=== PATIENT | female | born 1990 | race Caucasian/White ===

== ENCOUNTER 2017-11-23 04:58 | Inpatient (IN) | payer BC ==
[2017-11-23] MEDS ORDERED: Sodium Chloride 0.9% 10 ML Syringe FLUSH PRN ×2 (05:54→09:48)
[2017-11-23] MEDS ORDERED: Water For Irrigation,Sterile 1,000 ML Container IRR PRN (05:54)
[2017-11-23] MEDS ORDERED: Methylergonovine 0.2 MG/1 ML Amp IM PRN (05:54)
[2017-11-23] MEDS ORDERED: Butorphanol 1 MG/ML SDV IVPUSH PRN (05:54)
[2017-11-23] MEDS ORDERED: Nalbuphine 10 MG/1 ML Vial IVPUSH PRN ×2 (05:54→20:36)
[2017-11-23] MEDS ORDERED: Sodium Chloride 0.9% 2.5 ML Syringe FLUSH PRN ×2 (05:54→09:48)
[2017-11-23] MEDS ORDERED: Carboprost Tromethamine 250 MCG/1 ML Amp IM PRN (05:54)
[2017-11-23] MEDS ORDERED: Misoprostol 200 MCG Tab PO PRN (05:54)
[2017-11-23] MEDS ORDERED: Lidocaine 1% 50 ML MDV INJECT PRN (05:54)
[2017-11-23] MEDS ORDERED: Terbutaline 1 MG/ML SDV SUBCUT PRN (05:56)
[2017-11-23] MEDS ORDERED: Lactated Ringers 1,000 ML IV SCH ×3 (06:00→20:30)
[2017-11-23] MEDS ORDERED: Oxytocin/0.9 % Sodium Chloride 30 UNIT/500 ML BAG IV SCH ×2 (06:00→10:00)
[2017-11-23] MEDS ORDERED: ceFAZolin 2 GM in Premix Bag 1 BAG IV ONE (09:48)
[2017-11-23] MEDS ORDERED: Citric Acid/Sodium Citrate Solution 30 ML Cup PO SCH (10:00)
--- NOTE | 2017-11-23 10:14 | PCM.PREANE ---
Preanesthetic Assessment - Anesthesia/Transfusion/Family Hx Anesthesia History: Prior Anesthesia Without Reaction Transfusion History: Prior Transfusion Without Reaction - Review of Systems General: No Symptoms Pulmonary: No Symptoms Cardiovascular: No Symptoms Gastrointestinal: No Symptoms Neurological: No Symptoms Other: Reports: None - Physical Assessment Height: 5 ft 3 in Weight: 93.894 kg ASA Class: 2 Mental Status: Alert & Oriented x3 Airway Class: Mallampati = 2 Dentition: Reports: Normal Dentition Thyro-Mental Finger Breadths: 3 Mouth Opening Finger Breadths: 3 ROM/Head Extension: Full Lungs: Clear to Auscultation, Normal Respiratory Effort Cardiovascular: Regular Rate, Regular Rhythm - Lab Values: Laboratory Last Values WBC 10.17 K/uL (4.0-11.0) 11/23/17 06:40 RBC 3.44 M/uL (4.30-5.90) L 11/23/17 06:40 Hgb 9.6 g/dL (12.0-16.0) L 11/23/17 06:40 Hct 30.1 % (36.0-46.0) L 11/23/17 06:40 MCV 87.5 fL (80.0-98.0) 11/23/17 06:40 MCH 27.9 pg (27.0-32.0) 11/23/17 06:40 MCHC 31.9 g/dL (31.0-37.0) 11/23/17 06:40 RDW Std Deviation 47.2 fl (28.0-62.0) 11/23/17 06:40 RDW Coeff of Joe 15 % (11.0-15.0) 11/23/17 06:40 Plt Count 204 K/uL (150-400) 11/23/17 06:40 MPV 9.90 fL (7.40-12.00) 11/23/17 06:40 Nucleated RBC % 0.0 /100WBC 11/23/17 06:40 Nucleated RBCs # 0 K/uL 11/23/17 06:40 Blood Type O POSITIVE 11/23/17 06:40 Antibody Screen NEGATIVE 11/23/17 06:40 Crossmatch See Detail 11/23/17 06:40 - Allergies Allergies/Adverse Reactions: Allergies Allergy/AdvReac Type Severity Reaction Status Date / Time amoxicillin [From Augmentin] Allergy Intermediate Hives Verified 01/17/17 01:35 clavulanic acid Allergy Intermediate Hives Verified 12/17/16 01:35 [From Augmentin] - Anesthesia Plan Free Text/Narrative:: Discussed the possibility of blood transfusion, pt agrees to receive transfusion should be deemed it necessary. 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: Musculoskeletal History: Reports: Fracture, Other (See Below) Other Musculoskeletal History: ankle Neurological History: Reports: Seizure, Other (See Below) Other Neuro History: seizure as a baby following vaccination Psychiatric History: Reports: Anxiety, Depression - Infectious Disease History Infectious Disease History: Reports: Chicken Pox - Past Surgical History Musculoskeletal Surgical History: Reports: ORIF Other Musculoskeletal Surgeries/Procedures:: left ankle - SUBSTANCE USE Smoking Status *Q: Never Smoker Second Hand Smoke Exposure: No Recreational Drug Use History: No - HOME MEDS Home Medications: Home Meds . [No Known Home Meds] 12/17/16 [History] - CURRENT (IN HOUSE) MEDS Current Meds: Current Medications Butorphanol Tartrate (Stadol) 1 mg IVPUSH Q1H PRN PRN Reason: Pain Carboprost Tromethamine (Hemabate Ds) 250 mcg IM ASDIRECTED PRN PRN Reason: Post Hemorrhage Citric Acid/Sodium Citrate (Bicitra Solution) 30 ml PO .ONCE SADE Lactated Ringer's (Ringers, Lactated) 1,000 mls @ 150 mls/hr IV ASDIRECTED SADE Last Admin: 11/23/17 07:15 Dose: 150 mls/hr Oxytocin/Sodium Chloride (Oxytocin 30 Unit/500 Ml-Ns) 30 unit in 500 mls @ 2 mls/hr IV TITRATE SADE; 2 MUNITS/MIN PRN Reason: Protocol Last Titration: 11/23/17 09:11 Dose: 0 munits/min, 0 mls/hr Cefazolin Sodium/Dextrose 2 gm (/ Premix) 50 mls @ 100 mls/hr IV ONETIME ONE Stop: 11/23/17 10:17 Lactated Ringer's (Ringers, Lactated) 1,000 mls @ 500 mls/hr IV .BOLUS SADE Oxytocin/Sodium Chloride (Oxytocin 30 Unit/500 Ml-Ns) 30 unit in 500 mls @ 250 mls/hr IV TITRATE SADE Lidocaine HCl (Xylocaine 1%) 50 ml INJECT .ONCE PRN PRN Reason: Laceration repair Methylergonovine Maleate (Methergine) 0.2 mg IM ASDIRECTED PRN PRN Reason: Post Hemorrhage Misoprostol (Cytotec) 200 mcg PO .ONCE PRN PRN Reason: Post Hemorrhage Nalbuphine HCl (Nubain) 10 mg IVPUSH Q1H PRN PRN Reason: Pain (severe 7-10) Sodium Chloride (Saline Flush) 10 ml FLUSH ASDIRECTED PRN PRN Reason: Keep Vein Open Sodium Chloride (Saline Flush) 2.5 ml FLUSH ASDIRECTED PRN PRN Reason: Keep Vein Open Sodium Chloride (Saline Flush) 10 ml FLUSH ASDIRECTED PRN PRN Reason: Keep Vein Open Sodium Chloride (Saline Flush) 2.5 ml FLUSH ASDIRECTED PRN PRN Reason: Keep Vein Open Sterile Water (Sterile Water For Irrigation) 1,000 ml IRR ASDIRECTED PRN PRN Reason: delivery Terbutaline Sulfate (Brethine) 0.25 mg SUBCUT ASDIRECTED PRN PRN Reason: Tacysystole
[2017-11-23] MEDS ORDERED: Ondansetron 4 MG/2 ML SDV ONE (10:21)
[2017-11-23] MEDS ORDERED: Oxytocin 10 Units/1 ML SDV ONE (10:21)
[2017-11-23] MEDS ORDERED: ceFAZolin 1 GM Vial ONE (10:21)
[2017-11-23] MEDS ORDERED: Sodium Chloride 0.9% 20 ML ONE (10:21)
[2017-11-23] MEDS ORDERED: ePHEDrine 50 MG/ML SDV ONE (10:21)
[2017-11-23] MEDS ORDERED: Morphine PF 10 MG/10 ML SDV ONE (10:24)
[2017-11-23] MEDS ORDERED: Octyl 2-Cyanoacrylate 1 Tube ONE (11:05)
[2017-11-23] MEDS ORDERED: fentaNYL 100 MCG/2 ML SDV ONE (11:06)
[2017-11-23] MEDS ORDERED: Ketorolac 30 MG/ML SDV ONE (12:02)
[2017-11-23] MEDS ORDERED: Ondansetron 4 MG/2 ML SDV IV PRN (20:28)
[2017-11-23] MEDS ORDERED: Acetaminophen/oxyCODONE 325-5 MG Tab PO PRN (20:28)
[2017-11-23] MEDS ORDERED: Bisacodyl 10 MG Supp RECTAL PRN (20:28)
[2017-11-23] MEDS ORDERED: Lanolin 100% Cream 7 GM Tube TOP PRN (20:28)
[2017-11-23] MEDS ORDERED: diphenhydrAMINE 50 MG/ML SDV IVPUSH PRN (20:28)
[2017-11-23] MEDS ORDERED: Naloxone 0.4 MG/ML Syringe IVPUSH PRN (20:38)
[2017-11-23] MEDS: Ketorolac 30 MG/ML SDV IVPUSH SCH (20:40)
[2017-11-23] MEDS: Docusate Sodium 100 MG Cap PO SCH (21:29)
--- NOTE | 2017-11-24 00:19 | OR ---
SURGEON: Nancy Rene M.D. DATE OF PROCEDURE: 11/23/2017 PREOPERATIVE DIAGNOSIS: Thirty-nine weeks intrauterine , breech presentation, polyhydramnios. POSTOPERATIVE DIAGNOSIS: Thirty-nine weeks intrauterine , breech presentation, polyhydramnios. PROCEDURE: Primary low transverse section. PRIMARY SURGEON: Nancy Rene M.D. ANESTHESIA: Spinal. ESTIMATED BLOOD LOSS: 500 mL. FLUIDS: 1300 mL crystalloid. FINDINGS: Live born female, score 9 and 9, weighing 3620 grams. COMPLICATIONS: None known. DISPOSITION: Stable to recovery. BRIEF HISTORY: This is a 27-year-old female, G4, P3-0-0-3. She was diagnosed with polyhydramnios. She presents for induction of labor. Upon presentation, she was found to be breech with the head in the maternal left upper quadrant. Due to the polyhydramnios and documentation of recent cephalic presentation, I did recommend proceeding with external cephalic version with risks discussed including injury, placental abruption, spontaneous rupture of membranes, onset of labor, and maternal discomfort versus proceeding with a primary C- section with risks of bleeding; infection; injury to bowel, bladder, blood vessels; injury to other organs; risk of thrombolic event; and risk of anesthesia. Understanding all these risks, she does desire to proceed with a primary low transverse delivery. DESCRIPTION OF PROCEDURE: With the patient in left tilt position, under adequate spinal analgesia, the abdomen was prepped with chlorhexidine and draped in usual fashion for abdominal surgery. SCDs were in place. She had received 2 g of Ancef IV and documentation of adequate analgesia was performed after time-out was held. A transverse curvilinear incision was made cephalad from the pubic symphysis by 2 cm and carried through the subcutaneous tissue. The fascia was just scored transversely in the midline. The fascial incision was extended laterally using curved Chand scissors. The fascia was elevated from the underlying rectus muscle using sharp and blunt dissection. The rectus muscles were in the midline using blunt dissection. A finger was placed into the peritoneal cavity. There were no adhesions. This was extended by blunt dissection. The Edgar C- section retractor was placed into the abdominal cavity. The visceroperitoneum over the lower uterine segment was incised to develop an adequate bladder flap. A transverse curvilinear incision was made over the lower uterine segment using a scalpel. A finger was used to enter the amniotic cavity. Copious clear fluid was noted. breech was palpated; however, with gentle rotation, I was able to internally vert the fetus to cephalic presentation for delivery and delivered with fundal pressure the infant's head followed by shoulders and body without any difficulty. The infant was bulb suctioned by nose and mouth. Cord was clamped x2 and cut, and the was handed to Dr. Jang who was present at the time of delivery. The is a liveborn female, score 9 and 9, weighing 3620 grams. Cord blood was collected for cord ABGs as well as routine cord blood sampling. Placenta was removed by manual extraction and cleaned with a dry laparotomy tape. The cervix was opened with a ring forceps. The uterine incision was closed with a running lock suture of 0 Polysorb, followed by an imbricating layer of 0 Polysorb, followed by several [id number] sutures of 0 Polysorb for complete hemostasis. The pericolic gutters and posterior cul-de- sac were cleaned with a wet laparotomy tape. The uterine incision was carefully inspected and was hemostatic. The Edgar retractor was removed. There was one final inspection performed and hemostasis was confirmed. The rectus muscle and peritoneum were loosely approximated in the midline using a running mattress suture of 0 Polysorb. The posterior aspect of the fascia was inspected and was hemostatic. The fascial incision was closed with a running lock suture of 0 Polysorb. Subcutaneous tissue was irrigated. Any areas of bleeding that were noted were cauterized. The skin was closed with a running subcuticular suture of 3-0 Polysorb followed by skin glue. Final sponge, needle, and instrument counts were reported as correct. There were no known complications, and the went to nursery in good condition, mother remains in recovery in good condition. ANDREINA / ANIRUDH /[id number]
[2017-11-24] MEDS: Ketorolac 30 MG/ML SDV IVPUSH SCH ×4 (02:56→20:42)
--- NOTE | 2017-11-24 06:04 | PCM.POSTAN ---
POST ANESTHESIA ASSESSMENT - MENTAL STATUS Mental Status: Alert, Oriented - RESPIRATORY Respiratory Status: Respiratory Rate WNL, Airway Patent, O2 Saturation Stable - CARDIOVASCULAR CV Status: Pulse Rate WNL, Blood Pressure Stable - GASTROINTESTINAL GI Status: No Symptoms - POST OP HYDRATION Hydration Status: Adequate & Stable
--- NOTE | 2017-11-24 06:05 | PCM48HPAN ---
Post Anesthesia Note - EVALUATION WITHIN 48HRS OF ANESTHETIC Vital Signs in Normal Range: Yes Patient Participated in Evaluation: Yes Respiratory Function Stable: Yes Airway Patent: Yes Cardiovascular Function Stable: Yes Hydration Status Stable: Yes Pain Control Satisfactory: Yes Nausea and Vomiting Control Satisfactory: Yes Mental Status Recovered: Yes
[2017-11-24] MEDS: Docusate Sodium 100 MG Cap PO SCH ×2 (08:22→21:34)
--- NOTE | 2017-11-24 09:29 | PCM.PNPP ---
- General Info Functional Status: Reports: Pain Controlled, Tolerating Diet, Ambulating, Urinating - Review of Systems General: Reports: No Symptoms HEENT: Reports: No Symptoms Pulmonary: Reports: No Symptoms Cardiovascular: Reports: No Symptoms Gastrointestinal: Reports: No Symptoms Genitourinary: Reports: No Symptoms Musculoskeletal: Reports: No Symptoms Skin: Reports: No Symptoms Neurological: Reports: No Symptoms Psychiatric: Reports: No Symptoms - Patient Data Vital Signs - Most Recent: Last Vital Signs Temp 36.8 C 11/24/17 02:54 Pulse 76 11/24/17 02:54 Resp 16 11/24/17 06:03 BP 107/47 L 11/24/17 02:54 Pulse Ox 100 11/24/17 06:03 Weight - Most Recent: 93.894 kg Lab Results - Last 24 Hours: Laboratory Results - last 24 hr 11/23/17 11/24/17 Range/Units 06:40 06:07 Hgb 9.6 L (12.0-16.0) g/dL Hct 30.2 L (36.0-46.0) % Blood Type O POSITIVE Antibody Screen NEGATIVE Crossmatch See Detail Med Orders - Current: Current Medications Bisacodyl (Dulcolax) 10 mg RECTAL .ONCE PRN PRN Reason: Constipation Butorphanol Tartrate (Stadol) 1 mg IVPUSH Q1H PRN PRN Reason: Pain Carboprost Tromethamine (Hemabate Ds) 250 mcg IM ASDIRECTED PRN PRN Reason: Post Hemorrhage Citric Acid/Sodium Citrate (Bicitra Solution) 30 ml PO .ONCE SADE Diphenhydramine HCl (Benadryl) 25 mg IVPUSH Q6H PRN PRN Reason: Itching or Nausea Docusate Sodium (Colace) 100 mg PO BID SADE Last Admin: 11/24/17 08:22 Dose: 100 mg Emollient Ointment (Lansinoh Hpa) 0 gm TOP ASDIRECTED PRN PRN Reason: Sore Nipples Lactated Ringer's (Ringers, Lactated) 1,000 mls @ 150 mls/hr IV ASDIRECTED SADE Last Admin: 11/23/17 07:15 Dose: 150 mls/hr Oxytocin/Sodium Chloride (Oxytocin 30 Unit/500 Ml-Ns) 30 unit in 500 mls @ 2 mls/hr IV TITRATE SADE; 2 MUNITS/MIN PRN Reason: Protocol Last Titration: 11/23/17 09:11 Dose: 0 munits/min, 0 mls/hr Lactated Ringer's (Ringers, Lactated) 1,000 mls @ 500 mls/hr IV .BOLUS SADE Oxytocin/Sodium Chloride (Oxytocin 30 Unit/500 Ml-Ns) 30 unit in 500 mls @ 250 mls/hr IV TITRATE SADE Lactated Ringer's (Ringers, Lactated) 1,000 mls @ 125 mls/hr IV ASDIRECTED SADE Last Admin: 11/23/17 21:25 Dose: 125 mls/hr Ibuprofen (Motrin) 800 mg PO Q8H PRN PRN Reason: mild pain or fever Ketorolac Tromethamine (Toradol) 30 mg IVPUSH Q6H SADE Stop: 11/24/17 20:31 Last Admin: 11/24/17 08:22 Dose: 30 mg Lidocaine HCl (Xylocaine 1%) 50 ml INJECT .ONCE PRN PRN Reason: Laceration repair Methylergonovine Maleate (Methergine) 0.2 mg IM ASDIRECTED PRN PRN Reason: Post Hemorrhage Misoprostol (Cytotec) 200 mcg PO .ONCE PRN PRN Reason: Post Hemorrhage Nalbuphine HCl (Nubain) 10 mg IVPUSH Q1H PRN PRN Reason: Pain (severe 7-10) Nalbuphine HCl (Nubain) 5 mg IVPUSH Q3H PRN PRN Reason: Itching Naloxone HCl (Narcan) 0.1 mg IVPUSH SEECOMMENT PRN PRN Reason: Other Ondansetron HCl (Zofran) 4 mg IV Q4H PRN PRN Reason: Nausea/Vomiting Oxycodone/Acetaminophen (Percocet 325-5 Mg) 1 tab PO Q4H PRN PRN Reason: Pain (moderate 4-6) Oxycodone/Acetaminophen (Percocet 325-5 Mg) 2 tab PO Q4H PRN PRN Reason: Pain (moderate 4-6) Sodium Chloride (Saline Flush) 10 ml FLUSH ASDIRECTED PRN PRN Reason: Keep Vein Open Sodium Chloride (Saline Flush) 2.5 ml FLUSH ASDIRECTED PRN PRN Reason: Keep Vein Open Sodium Chloride (Saline Flush) 10 ml FLUSH ASDIRECTED PRN PRN Reason: Keep Vein Open Sodium Chloride (Saline Flush) 2.5 ml FLUSH ASDIRECTED PRN PRN Reason: Keep Vein Open Sterile Water (Sterile Water For Irrigation) 1,000 ml IRR ASDIRECTED PRN PRN Reason: delivery Terbutaline Sulfate (Brethine) 0.25 mg SUBCUT ASDIRECTED PRN PRN Reason: Tacysystole Discontinued Medications Cefazolin Sodium (Ancef) Confirm Administered Dose 2 gm .ROUTE .STK-MED ONE Stop: 11/23/17 10:22 Ephedrine Sulfate (Ephedrine Sulfate) Confirm Administered Dose 50 mg .ROUTE .STK-MED ONE Stop: 11/23/17 10:22 Fentanyl (Sublimaze) Confirm Administered Dose 100 mcg .ROUTE .STK-MED ONE Stop: 11/23/17 11:07 Glycopyrrolate () Confirm Administered Dose 1 mg .ROUTE .STK-MED ONE Stop: 11/23/17 10:57 Cefazolin Sodium/Dextrose 2 gm (/ Premix) 50 mls @ 100 mls/hr IV ONETIME ONE Stop: 11/23/17 10:17 Last Admin: 11/23/17 18:42 Dose: Not Given Sodium Chloride (Normal Saline) Confirm Administered Dose 20 mls @ as directed .ROUTE .STK-MED ONE Stop: 11/23/17 10:22 Ketorolac Tromethamine (Toradol) Confirm Administered Dose 30 mg .ROUTE .STK- MED ONE Stop: 11/23/17 12:03 Last Admin: 11/23/17 21:07 Dose: Not Given Morphine Sulfate (Duramorph Pf) Confirm Administered Dose 10 mg .ROUTE .STK-MED ONE Stop: 11/23/17 10:25 Octyl Cyanoacrylate (Dermabond Advance) Confirm Administered Dose 1 applic .ROUTE .STK-MED ONE Stop: 11/23/17 11:06 Ondansetron HCl (Zofran) Confirm Administered Dose 4 mg .ROUTE .STK-MED ONE Stop: 11/23/17 10:22 Oxytocin (Pitocin) Confirm Administered Dose 20 unit .ROUTE .STK-MED ONE Stop: 11/23/17 10:22 - Infant Interaction Infant Disposition, : [place] in Room with Family Infant Interaction: Holding Infant Infant Feeding: Breastfed Infant; Nursed Well Support Person: - Recovery Exam Fundal Level: 3 Fingerbreadths Below Umbilicus Fundal Placement: Midline Lochia Amount: Small - Exam General: Alert, Oriented HEENT: Pupils Equal Neck: Supple Lungs: Clear to Auscultation GI/Abdominal Exam: Soft, Non-Tender, No Organomegaly, No Distention Extremities: Normal Inspection, Non-Tender, No Pedal Edema Skin: Warm, Dry, Intact Wound/Incisions: Healing Well Neurological: No New Focal Deficit Psy/Mental Status: Alert, Normal Affect, Normal Mood - Problem List & Annotations (1) Prev [id number] SNOMED Code(s): 013763867 Code(s): O34.219 - MATERNAL CARE FOR UNSP TYPE SCAR FROM PREVIOUS DEL Status: Acute Current Visit: Yes - Problem List Review Problem List Initiated/Reviewed/Updated: Yes - My Orders Last 24 Hours: My Active Orders 11/23/17 09:48 Notify Provider Vital Signs [RC] PRN Sodium Chloride 0.9% [Saline Flush] 10 ml FLUSH ASDIRECTED PRN Sodium Chloride 0.9% [Saline Flush] 2.5 ml FLUSH ASDIRECTED PRN Peripheral IV Insertion Adult [OM.PC] Routine Schedule Procedure [COMM] Per Unit Routine 11/23/17 10:00 Citric Acid/Sodium Citrate [Bicitra Solution] 30 ml PO .ONCE Lactated Ringers [Ringers, Lactated] 1,000 ml IV .BOLUS Oxytocin/0.9 % Sodium Chloride [Oxytocin 30 Unit/500 ML-NS] 30 unit in 500 ml IV TITRATE 11/23/17 10:57 Patient Status [ADT] Routine Notify Provider Intake and Out [RC] ASDIRECTED Notify Provider Vital Signs [RC] ASDIRECTED 11/23/17 20:28 Ambulate [RC] PER UNIT ROUTINE Antiembolic Devices [RC] PER UNIT ROUTINE Communication Order [RC] PER UNIT ROUTINE Communication Order [RC] PER UNIT ROUTINE Communication Order [RC] Per Unit Routine May Shower [RC] ASDIRECTED RT Incentive Spirometry [RC] Q2HWA Vital Signs [RC] PER UNIT ROUTINE Acetaminophen/oxyCODONE [Percocet 325-5 MG] 1 tab PO Q4H PRN Acetaminophen/oxyCODONE [Percocet 325-5 MG] 2 tab PO Q4H PRN Bisacodyl [Dulcolax] 10 mg RECTAL .ONCE PRN Ibuprofen [Motrin] 800 mg PO Q8H PRN Lanolin [Lansinoh HPA] See Dose Instructions TOP ASDIRECTED PRN Ondansetron [Zofran] 4 mg IV Q4H PRN diphenhydrAMINE [Benadryl] 25 mg IVPUSH Q6H PRN Assess Lochia [WOMSER] Per Unit Routine Assess Uterine Involution [WOMSER] Per Unit Routine Breast Pump [WOMSER] Per Unit Routine Peripheral IV Discontinue [OM.PC] Routine Sequential Compression Device [OM.PC] Per Unit Routine 11/23/17 20:30 Ketorolac [Toradol] 30 mg IVPUSH Q6H Lactated Ringers [Ringers, Lactated] 1,000 ml IV ASDIRECTED 11/23/17 21:00 Docusate Sodium [Colace] 100 mg PO BID 11/23/17 Dinner Regular Diet [DIET] - Assessment Assessment:: POD#1 after primary for breech presentation, stable, minimal lochia. Tolerating regular diet, ambulating and urinating without difficulty. - Plan Plan:: Continue care, anticipate home in am.
[2017-11-24] MEDS: Acetaminophen/oxyCODONE 325-5 MG Tab PO PRN (18:20)
[2017-11-24] MEDS: Ibuprofen 800 MG Tab PO PRN (21:34)
[2017-11-25] MEDS: Acetaminophen/oxyCODONE 325-5 MG Tab PO PRN ×2 (03:39→08:37)
[2017-11-25] MEDS: Docusate Sodium 100 MG Cap PO SCH (08:38)
[2017-11-25 09:45] VITALS: BP 112/64
--- NOTE | 2017-11-25 10:10 | PCM.PNPP ---
- General Info Date of Service: 11/25/17 Admission Dx/Problem (Free Text): 27 yo s/p Primary for breech presentation POD 2 Subjective Update: Patient seen at bedside , she denies any complains , ambulating voiding and tolerating regular diet , minimal lochia Functional Status: Reports: Pain Controlled, Tolerating Diet, Ambulating, Urinating - Review of Systems General: Reports: No Symptoms HEENT: Reports: No Symptoms Pulmonary: Reports: No Symptoms Cardiovascular: Reports: No Symptoms Gastrointestinal: Reports: No Symptoms Genitourinary: Reports: No Symptoms Musculoskeletal: Reports: No Symptoms Skin: Reports: No Symptoms Neurological: Reports: No Symptoms Psychiatric: Reports: No Symptoms - General Info Date of Service: 11/25/17 - Patient Data Vital Signs - Most Recent: Last Vital Signs Temp 36.2 C 11/25/17 09:41 Pulse 70 11/25/17 09:41 Resp 18 11/25/17 09:41 BP 112/64 11/25/17 09:41 Pulse Ox 99 11/25/17 09:41 Weight - Most Recent: 93.894 kg Med Orders - Current: Current Medications Bisacodyl (Dulcolax) 10 mg RECTAL .ONCE PRN PRN Reason: Constipation Butorphanol Tartrate (Stadol) 1 mg IVPUSH Q1H PRN PRN Reason: Pain Carboprost Tromethamine (Hemabate Ds) 250 mcg IM ASDIRECTED PRN PRN Reason: Post Hemorrhage Citric Acid/Sodium Citrate (Bicitra Solution) 30 ml PO .ONCE SADE Diphenhydramine HCl (Benadryl) 25 mg IVPUSH Q6H PRN PRN Reason: Itching or Nausea Docusate Sodium (Colace) 100 mg PO BID SADE Last Admin: 11/25/17 08:38 Dose: 100 mg Emollient Ointment (Lansinoh Hpa) 0 gm TOP ASDIRECTED PRN PRN Reason: Sore Nipples Lactated Ringer's (Ringers, Lactated) 1,000 mls @ 150 mls/hr IV ASDIRECTED SADE Last Admin: 11/23/17 07:15 Dose: 150 mls/hr Oxytocin/Sodium Chloride (Oxytocin 30 Unit/500 Ml-Ns) 30 unit in 500 mls @ 2 mls/hr IV TITRATE SADE; 2 MUNITS/MIN PRN Reason: Protocol Last Titration: 11/23/17 09:11 Dose: 0 munits/min, 0 mls/hr Lactated Ringer's (Ringers, Lactated) 1,000 mls @ 500 mls/hr IV .BOLUS SADE Oxytocin/Sodium Chloride (Oxytocin 30 Unit/500 Ml-Ns) 30 unit in 500 mls @ 250 mls/hr IV TITRATE SADE Lactated Ringer's (Ringers, Lactated) 1,000 mls @ 125 mls/hr IV ASDIRECTED SADE Last Admin: 11/23/17 21:25 Dose: 125 mls/hr Ibuprofen (Motrin) 800 mg PO Q8H PRN PRN Reason: mild pain or fever Last Admin: 11/24/17 21:34 Dose: 800 mg Lidocaine HCl (Xylocaine 1%) 50 ml INJECT .ONCE PRN PRN Reason: Laceration repair Methylergonovine Maleate (Methergine) 0.2 mg IM ASDIRECTED PRN PRN Reason: Post Hemorrhage Misoprostol (Cytotec) 200 mcg PO .ONCE PRN PRN Reason: Post Hemorrhage Nalbuphine HCl (Nubain) 10 mg IVPUSH Q1H PRN PRN Reason: Pain (severe 7-10) Nalbuphine HCl (Nubain) 5 mg IVPUSH Q3H PRN PRN Reason: Itching Naloxone HCl (Narcan) 0.1 mg IVPUSH SEECOMMENT PRN PRN Reason: Other Ondansetron HCl (Zofran) 4 mg IV Q4H PRN PRN Reason: Nausea/Vomiting Oxycodone/Acetaminophen (Percocet 325-5 Mg) 1 tab PO Q4H PRN PRN Reason: Pain (moderate 4-6) Last Admin: 11/24/17 22:49 Dose: 1 tab Oxycodone/Acetaminophen (Percocet 325-5 Mg) 2 tab PO Q4H PRN PRN Reason: Pain (moderate 4-6) Last Admin: 11/25/17 08:37 Dose: 2 tab Sodium Chloride (Saline Flush) 10 ml FLUSH ASDIRECTED PRN PRN Reason: Keep Vein Open Sodium Chloride (Saline Flush) 2.5 ml FLUSH ASDIRECTED PRN PRN Reason: Keep Vein Open Sodium Chloride (Saline Flush) 10 ml FLUSH ASDIRECTED PRN PRN Reason: Keep Vein Open Sodium Chloride (Saline Flush) 2.5 ml FLUSH ASDIRECTED PRN PRN Reason: Keep Vein Open Sterile Water (Sterile Water For Irrigation) 1,000 ml IRR ASDIRECTED PRN PRN Reason: delivery Terbutaline Sulfate (Brethine) 0.25 mg SUBCUT ASDIRECTED PRN PRN Reason: Tacysystole Discontinued Medications Cefazolin Sodium (Ancef) Confirm Administered Dose 2 gm .ROUTE .STK-MED ONE Stop: 11/23/17 10:22 Ephedrine Sulfate (Ephedrine Sulfate) Confirm Administered Dose 50 mg .ROUTE .STK-MED ONE Stop: 11/23/17 10:22 Fentanyl (Sublimaze) Confirm Administered Dose 100 mcg .ROUTE .STK-MED ONE Stop: 11/23/17 11:07 Glycopyrrolate () Confirm Administered Dose 1 mg .ROUTE .STK-MED ONE Stop: 11/23/17 10:57 Cefazolin Sodium/Dextrose 2 gm (/ Premix) 50 mls @ 100 mls/hr IV ONETIME ONE Stop: 11/23/17 10:17 Last Admin: 11/23/17 18:42 Dose: Not Given Sodium Chloride (Normal Saline) Confirm Administered Dose 20 mls @ as directed .ROUTE .STK-MED ONE Stop: 11/23/17 10:22 Ketorolac Tromethamine (Toradol) Confirm Administered Dose 30 mg .ROUTE .STK- MED ONE Stop: 11/23/17 12:03 Last Admin: 11/23/17 21:07 Dose: Not Given Ketorolac Tromethamine (Toradol) 30 mg IVPUSH Q6H SADE Stop: 11/24/17 20:31 Last Admin: 11/24/17 20:42 Dose: Not Given Morphine Sulfate (Duramorph Pf) Confirm Administered Dose 10 mg .ROUTE .STK-MED ONE Stop: 11/23/17 10:25 Octyl Cyanoacrylate (Dermabond Advance) Confirm Administered Dose 1 applic .ROUTE .STK-MED ONE Stop: 11/23/17 11:06 Ondansetron HCl (Zofran) Confirm Administered Dose 4 mg .ROUTE .STK-MED ONE Stop: 11/23/17 10:22 Oxytocin (Pitocin) Confirm Administered Dose 20 unit .ROUTE .STK-MED ONE Stop: 11/23/17 10:22 - Infant Interaction Disposition, : in Room with Family Infant Interaction: Holding Infant Feeding: Breastfed ; Nursed Well Support Person: - Recovery Exam Fundal Tone: Firm Fundal Level: 1 Fingerbreadths Below Umbilicus Fundal Placement: Midline Lochia Amount: Scant Lochia Color: Rubra/Red Perineum Description: Intact, Minimal Bruising/Swelling Episiotomy/Laceration: None Bladder Status: Voiding Urinary Elimination: Voided - Exam General: Alert, Oriented HEENT: Pupils Equal, Pupils Reactive Neck: Supple Lungs: Clear to Auscultation, Normal Respiratory Effort Cardiovascular: Regular Rate, Regular Rhythm GI/Abdominal Exam: Normal Bowel Sounds (pfannestiel skin incision c/d/i , normal bowel sounds ) Extremities: Normal Inspection Skin: Warm, Dry Neurological: No New Focal Deficit - Problem List Review Problem List Initiated/Reviewed/Updated: Yes - Assessment Assessment:: POD#2 after primary for breech presentation, stable, minimal lochia. Tolerating regular diet, ambulating and urinating without difficulty. - Plan Plan:: Continue care, discharge home today
[2017-11-25] MEDS: Ibuprofen 800 MG Tab PO PRN (10:22)
== END 2017-11-25 12:50 | disposition home or self-care (01) | DRG 540 ==
LOC: MW.OBCHECK 04:58 → MW.OB 05:00 → MW.OBCHECK 05:30 → OBSVTOIN 10:57 → MW.OB 21:36
PROVIDERS: ADMIT Obstetrics & Gynecology; ATTEND Obstetrics & Gynecology
PROC: 10D00Z1 Extraction of Products of Conception, Low, Open Approach (ICD-10-PCS; principal; 2017-11-23)
DX: O40.3XX0 Polyhydramnios, third trimester, not applicable or unspecified (principal); O32.1XX0 Maternal care for breech presentation, not applicable or unspecified; Z3A.39 39 weeks gestation of pregnancy; Z37.0 Single live birth
CPT/HCPCS: 01961; 36415; 59025; 85014; 85018; 85027; A9270-GY; J0690; J1885; J2270; J2405; J2590; J3010; J7120

== ENCOUNTER 2021-08-01 20:05 | Emergency (ER) | payer BC ==
--- NOTE | 2021-08-01 22:24 | EDM.PDOC ---
ED HPI GENERAL MEDICAL PROBLEM - General Chief Complaint: Laceration Stated Complaint: LACERATION Time Seen by Provider: 08/01/21 22:14 - History of Present Illness INITIAL COMMENTS - FREE TEXT/NARRATIVE: 31-year-old female presenting with stab wound to the left hand she is right-hand dominant she was trying to cut off her dog collar and had a stab wound palmar aspect of the index finger at the level of the MCP joint she has significant pain with range of motion and reports diminished sensation over the left lateral finger. She has had tetanus shot within the last 5 years. ROS: Skin: Per HPI Gastrointestinal: No nausea, vomiting or abdominal pain. Musculoskeletal: Per HPI Neurologic: No headache. left index Pain Score (Numeric/FACES): 7 - Related Data Allergies Allergy/AdvReac Type Severity Reaction Status Date / Time amoxicillin [From Augmentin] Allergy Intermediate Hives Verified 08/01/21 22:22 clavulanic acid Allergy Intermediate Hives Verified 08/01/21 22:22 [From Augmentin] Home Meds: Home Meds . [No Known Home Meds] 12/17/16 [History] Past Medical History HEENT History: Reports: None Cardiovascular History: Reports: Heart Murmur Respiratory History: Reports: None Gastrointestinal History: Reports: None Genitourinary History: Reports: Other (See Below) Other Genitourinary History: possible bladder prolapse REAM CUTTER History: Reports: Other REAM CUTTER History: 4 children, states has had blood patch x 2 following epidural Musculoskeletal History: Reports: Fracture, Other (See Below) Other Musculoskeletal History: ankle Neurological History: Reports: Seizure, Other (See Below) Other Neuro History: seizure as a baby following vaccination Psychiatric History: Reports: Anxiety, Depression Endocrine/Metabolic History: Reports: None Hematologic History: Reports: None Dermatologic History: Reports: None - Infectious Disease History Infectious Disease History: Reports: None - Past Surgical History Musculoskeletal Surgical History: Reports: ORIF Other Musculoskeletal Surgeries/Procedures:: left ankle Social & Family History - Family History HEENT: Reports: Hearing Impairment Cardiac: Reports: [place] Respiratory: Reports: Asthma : Reports: Renal Disease/Insufficiency OBGYN: Reports: Musculoskeletal: Reports: Arthritis, Fibromyalgia Neurological: Reports: TIA Psychiatric: Reports: ADHD Endocrine/Metabolic: Reports: Diabetes, Type I Dermatologic: Reports: Eczema Oncologic: Reports: Breast, Ovarian - Caffeine Use Caffeine Use: Reports: Coffee ED ROS GENERAL - Review of Systems Review Of Systems: See Below ED EXAM, SKIN/RASH Exam: See Below Text/Narrative:: General Appearance: No acute distress, appears comfortable HEENT: Normocephalic/atraumatic, sclera anicteric, mucous membranes moist Musculoskeletal: 2+ left radial and ulnar pulses, 1.5 cm laceration on the palmar aspect of the MCP of the left index finger that is shifted slightly towards the thumb there is diminished sensation over the thenar aspect of the left index finger as well as the medial aspect of the left thumb accurate tendon exam is difficult due to patient pain but she appears to have active range of motion at the PIP and DIP MCP difficult to assess Neurologic: Awake, alert, no obvious deficits, moving all extremities Psychiatric: Appropriate, cooperative ED SKIN PROCEDURES - Additional/Other Procedure(s) Other (Free Text) Procedure(s): Laceration Repair Procedure Location: Left index finger Length: 1.5 cm Suture size and type: 5-0 nylon Number of sutures: 3 Complexity: Simple Time out: Yes, confirmed patient, place, procedure correct Consent: Verbal Suture technique: Simple interrupted Procedure: The wound was irrigated copiously with normal saline under pressure r. Close inspection revealed no evidence for retained foreign bodies, no visible tendon lacerations. Anesthesia was achieved using lidocaine without epinephrine. Sutures were placed using the above technique with approximation of the wound edges. Sterile dressing was applied to the closed wound. Complications: None Performed by: Roldan Angeles MD Course - Vital Signs Last Recorded V/S: Last Vital Signs Temp Pulse 97 08/01/21 23:36 Resp 20 08/01/21 23:36 BP 123/71 08/01/21 23:36 Pulse Ox 98 08/01/21 23:36 - Orders/Labs/Meds Meds: Medications Discontinued Medications Generic Name Dose Route Start Last Admin Trade Name Antoine PRN Reason Stop Dose Admin Lidocaine HCl 10 ml 08/01/21 22:20 08/01/21 22:53 Lidocaine 1% 10 Ml Mdv INJECT 08/01/21 22:21 Not Given ONETIME ONE Lidocaine HCl 10 ml 08/01/21 22:25 08/01/21 22:37 Lidocaine 1% 5 Ml Sdv INJECT 08/01/21 22:26 10 ml ONETIME ONE Administration Departure - Departure Time of Disposition: 23:13 Disposition: Home, Self-Care 01 Condition: Good Clinical Impression: Finger laceration - Discharge Information *PRESCRIPTION DRUG MONITORING PROGRAM REVIEWED*: Not Applicable *COPY OF PRESCRIPTION DRUG MONITORING REPORT IN PATIENT VINAYAK: Not Applicable Instructions: Laceration Care, Adult Referrals: Micah Chávez MD [Primary Care Provider] - Forms: ED Department Discharge Additional Instructions: Your stitches would need to be removed in 7 days. Because of the pain that you have with flexion of your finger we need to be extra cautious about the potential for a tendon injury. For this reason I recommend that you follow-up with the hand surgeon in [facility], [place]. Dr. Hernando Phelan [facility] [address], [place] [id number] Please call his office in the morning to make an appointment. The following information is given to patients seen in the emergency department who are being discharged to home. This information is to outline your options for follow-up care. We provide all patients seen in our emergency department with a follow-up referral. The need for follow-up, as well as the timing and circumstances, are variable depending upon the specifics of your emergency department visit. If you don't have a primary care physician on staff, we will provide you with a referral. We always advise you to contact your personal physician following an emergency department visit to inform them of the circumstance of the visit and for follow-up with them and/or the need for any referrals to a consulting specialist. The emergency department will also refer you to a specialist when appropriate. This referral assures that you have the opportunity for follow-up care with a specialist. All of these measure are taken in an effort to provide you with optimal care, which includes your follow-up. Under all circumstances we always encourage you to contact your private physician who remains a resource for coordinating your care. When calling for follow-up care, please make the office aware that this follow-up is from your recent emergency room visit. If for any reason you are refused follow-up, please contact the [facility] Emergency Department at and asked to speak to the emergency department charge nurse. Sepsis Event Note (ED) - Focused Exam Vital Signs: Vital Signs Pulse Resp BP Pulse Ox 08/01/21 23:36 97 20 123/71 98 - Assessment/Plan Assessment:: Will numb the laceration irrigate copiously and repair as documented if patient's tendon exam continues to be unreliable she may require hand surgery referral. After irrigation numbing and cleansing of the wound repeat tendon assessment appears largely intact although she does have significant discomfort with flexion at the MCP joint this could be related to pain or could be indicative of a partial tendon injury. On direct visualization no tendon injury could be obtained. However given this concern patient will follow up with hand surgery. Laceration repaired as documented without immediate complication wound care instructions provided return precautions discussed and understood.
[2021-08-01] MEDS: Lidocaine 1% 10 ML MDV INJECT ONE (22:53)
[2021-08-02 00:56] VITALS: BP 123/71; PULSE 97
== END 2021-08-01 23:36 | disposition home or self-care (01) ==
LOC: MW.ED 20:05
DX: S61.211A Laceration without foreign body of left index finger without damage to nail, initial encounter (principal); Z88.0 Allergy status to penicillin; Z68.37 Body mass index [BMI] 37.0-37.9, adult; W26.0XXA Contact with knife, initial encounter
CPT/HCPCS: 12001; 99282-25

== ENCOUNTER 2024-01-19 01:19 | Emergency (ER) | payer SELFPAY ==
[2024-01-19 01:59] LABS: BASOPHILS ABSOLUTE AUTO 0.04 K/uL (0.00-0.20); BASOPHILS PERCENT AUTO 0.4 % (0.0-1.0); EOSINOPHILS ABSOLUTE AUTO 0.39 K/uL (0.00-0.45); EOSINOPHILS PERCENT AUTO 3.4 % (0.0-6.0); HEMATOCRIT 37.5 % (37.0-47.0); HEMOGLOBIN 12.9 g/dL (12.0-16.0); IMMATURE GRAN ABSOLUTE AUTO 0.02 K/uL (0.00-0.05); IMMATURE GRAN PERCENT AUTO 0.2 % (0.0-0.4); LYMPHOCYTES ABSOLUTE AUTO 4.23 K/uL (1.00-4.80); LYMPHOCYTES PERCENT AUTO 37.3 % (24.0-44.0); MEAN CORPUSCULAR HEMOGLOBIN 28.7 pg (28.0-32.0); MEAN CORPUSCULAR HGB CONC 34.4 g/dL (32.0-36.0); MEAN CORPUSCULAR VOLUME 83.3 fL (83.0-99.0); MEAN PLATELET VOLUME 9.6 fL (9.4-12.3); MONOCYTES ABSOLUTE AUTO 0.68 K/uL (0.00-0.80); NEUTROPHILS ABSOLUTE AUTO 5.98 K/uL (1.80-7.70); NEUTROPHILS PERCENT AUTO 52.7 % (41.0-71.0); PLATELET COUNT,PLT 317 K/uL (150-400); WHITE BLOOD CELL COUNT,WBC 11.34 K/uL (3.9-11.3)
[2024-01-19 02:24] LABS: CORONAVIRUS COVID-19 NAA NEGATIVE (NEGATIVE); INFLUENZA A NAA NEGATIVE (NEGATIVE); INFLUENZA B NAA NEGATIVE (NEGATIVE); RESPIRATORY SYNCYTIAL VIR NAA NEGATIVE (NEGATIVE)
[2024-01-19] MEDS: LORazepam 2 MG/ML SDV IVPUSH ONE (02:27)
[2024-01-19 02:28] LABS: A/G RATIO 0.9 (0.9-1.6); ALANINE AMINOTRANSFERASE,ALT 27 IU/L (14-63); ALBUMIN 3.4 g/dL (3.4-5.0); ALKALINE PHOSPHATASE 76 U/L (46-116); ASPARTATE AMNIOTRANSFERASE,AST 13 IU/L (15-37); BILIRUBIN TOTAL 0.5 mg/dL (0.2-1.0); BLOOD UREA NITROGEN,BUN 13 mg/dL (7.0-18.0); CARBON DIOXIDE,CO2 23.4 mmol/L (21.0-32.0); CHLORIDE,CL 104 mmol/L (98-107); CREATININE 0.7 mg/dL (0.6-1.0); EST CRCL DRUG DOSING (CG) 93.68 mL/min; GLUCOSE RANDOM 96 mg/dL (74-106); POTASSIUM,K 3.4 mmol/L (3.5-5.1); PROTEIN TOTAL,TP 7.1 g/dL (6.4-8.2); SODIUM,NA 142 mmol/L (136-145)
[2024-01-19] MEDS: Sodium Chloride 0.9% 10 ML Syringe FLUSH PRN (02:28)
[2024-01-19] MEDS: Sodium Chloride 0.9% 2.5 ML Syringe FLUSH PRN (02:29)
[2024-01-19 02:30] VITALS: BP 108/65; PULSE 67
[2024-01-19 02:31] LABS: ESTIMATED GFR 116 mL/min (>60)
== END 2024-01-19 03:06 | disposition home or self-care (01) ==
LOC: MW.ED 01:19
DX: R07.9 Chest pain, unspecified (principal); Z88.0 Allergy status to penicillin; Z88.1 Allergy status to other antibiotic agents
CPT/HCPCS: 0241U; 36415; 71046; 80053; 84484; 84703; 85025; 85379; 93005; 96374; 99285; J2060; J3490; 93010; 99284